=== PATIENT | male | born 1955 | race Caucasian/White ===

== ENCOUNTER 2016-08-04 05:57 | Emergency (ER) | payer OTHER ==
[~2016-08-04] VITALS: Ht 170.2 cm; Wt 97.7 kg
--- NOTE | 2016-08-04 06:03 | ED.REPORT ---
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 He states that he tripped on a rubber mat and fell face-first into a metal door. Patient denies LOC, vomiting, and any other injuries secondary to the fall. He is unsure when his last tetanus shot was. Nursing Notes Stated Complaint: FALL, HEAD LAC, Nursing Notes Reviewed: Yes Allergies: Coded Allergies: Cat Dander (Verified Allergy, Unknown, 08/04/16) Dog Dander (Verified Allergy, Unknown, 08/04/16) General Time Seen by MD: 06:01 Chief Complaint Fall, Face injury, Head injury Hx Obtained From: Patient Arrived By: Walk-in Onset Occurred: Just prior to arrival Symptom Duration: Since onset Caused by: Accidental, Fall on ground Context: Occurred at: Workplace Location: Eye left Face Head Quality: Painful Severity: Current: Moderate Severity: Maximum: Moderate Pertinent Negative: Pt denies other symptoms Context: Immunizations Unknown Past Medical History Past Medical History Notes: PCP: Dr. 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 Cardiovascular: Denies: Chest pain GI: Denies: Nausea, Vomiting Physical Exam Initial Vital Signs Vital Signs (First) Date Time Temp Pulse Resp B/P Pulse Ox O2 Delivery O2 Flow Rate FiO2 08/04/16 06:04 36.5 85 18 188/102 97 Room Air Initial VS: Reviewed Respiratory: Breath sounds normal, Clear to auscultation, No respiratory distress Cardiovascular: Regular rate & rhythm, Heart sounds normal, Intact distal pulses Abdomen / GI: Soft, Non-tender, No guarding, No rebound, No distention Extremities: Vascular intact, Neuro intact, No swelling, No tenderness Skin: Warm, Dry, No cyanosis Neurologic: Alert, Oriented, Nonfocal Psychiatric: Mood/affect normal, Behavior normal, Normal thought content General/Constitutional: Awake, Alert, Well appearing, Well developed, Well nourished, Cooperative Neck: Atraumatic, Supple, Full range of motion, No swelling, Non-tender, No midline vertebral tend Head / Eyes: Normocephalic, PERRL, EOMI 2 parallel lacerations above left eyebrow through subcutaneous tissues. Laceration #1 is 2.5cm extending laterally from the medial border of the eyebrow. Laceration #2 is 2cm extending medially from the lateral border of the eyebrow. Procedures Laceration Management Time: 06:47 Procedure Performed by: ED physician Consent / Setup / Site Prep: Informed consent provided, Consent from patient , Time-out performed, Hand hygiene observed, Stand sterile technique Location of Wound: 2 parallel lacerations above left eyebrow through subcutaneous tissues. Laceration 1 is 2.5cm extending laterally from the medial border of the eyebrow. Laceration 2 is 2cm extending medially from the lateral border of the eyebrow. Local Anesthesia: Lidocaine w epi 1% Digital Block: No Irrigation: Copious Foreign Body Explore / Removal: Explored for foreign body Repair Skin: ___ O (4), Nylon # Sutures - Skin: 3 (inferior laceration), 5 (superior laceration) Closure Layers: 1 Suture Technique: Simple Post-Procedure / Complications: No complications, Condition improved, Tolerated procedure well, Patient stable Re-Eval/Medical Decision Source of Hx: Old records Re-Evaluation/Progress #1: Time of Eval: 06:46 Re-Evaluation/Progress Note: Laceration managment. Re-Evaluation/Progress #2: Time of Eval: 07:07 Re-Evaluation/Progress Note: Discussed physical examination findings and plan to discharge. Patient is amenable to the plan. Return precautions given. All other questions addressed. Counseled Regarding: Diagnosis, Need for follow-up, When/why to return to ED Discharge & Departure Impression: Primary Impression: Facial laceration Encounter type: initial encounter Qualified Code: S01.81XA - Laceration without foreign body of other part of head, initial encounter Additional Impression: Fall Encounter type: initial encounter Qualified Code: W19.XXXA - Unspecified fall, initial encounter Disposition: Home Discharge Condition All VS Reviewed: Yes Condition: Stable Patient Instructions: Laceration (DC) Additional Instructions: Thank you for seeking care here in the ER after your fall. I expect that he will feel pretty sore for the next couple of days. I recommend ibuprofen 800 mg every 8 hours. Your tetanus immunization was updated today. Follow-up with your primary care provider next or Monday to have the sutures removed. Return to the ER if you develop fever, chills, redness, discharge from the wound , signs of infection, or any other concerning signs or symptoms. Referrals: Fabrice Aguirre MD Attestation Portions of this note were transcribed by Cristopher Arteaga. I, Dr. Contreras, personally performed the history, physical exam and medical decision-making; I reviewed and confirmed the accuracy of the information in the transcribed note. Signed by: Romeo You, 08/04/2016 and 07:08 copies to: Fabrice Aguirre MD, Kirk H MD Aug 04, 2016 06:03 CRISTOPHER ARTEAGA Aug 04, 2016 06:06
[2016-08-04 06:04] VITALS: BP 188/102; PULSE 85; RESP 18; O2SAT 97
[2016-08-04] MEDS ORDERED: TdaP Vaccine 0.5 mL Inj IM ONE (07:10)
== END 2016-08-04 07:13 | disposition home or self-care (01) ==
LOC: SED 05:57
DX: S01.81XA Laceration without foreign body of other part of head, initial encounter (principal); W01.198A Fall on same level from slipping, tripping and stumbling with subsequent striking against other object, initial encounter; Y93.89 Activity, other specified; Y92.69 Other specified industrial and construction area as the place of occurrence of the external cause; Y99.0 Civilian activity done for income or pay; Z23 Encounter for immunization; Z87.891 Personal history of nicotine dependence; Z91.09 Other allergy status, other than to drugs and biological substances